=== PATIENT | male | born 1955 | race Caucasian/White ===

== ENCOUNTER → 2017-01-07 | Outpatient (CLI) | payer BC ==
[~2017-01-07] MED LIST: ALLO300T2 PO; AMLO5TAB2 PO; HYDR-4246 PO; IOHEXOL 300 MG/ML 50ml INJECTION ONE; IOHEXOL 300 MG/ML 75ml INJECTION ONE; LEVO200T10 PO; NORMAL SALINE 100 ML ONE; SALINE FLUSH 10ml SYRINGE ONE
--- NOTE | 2017-01-07 11:10 | DI ---
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 Coronal and sagittal two-dimensional reformats. Automated Exposure Control and Iterative Reconstruction dose reducing techniques were utilized. Contrast: Omnipaque 300 118 mL Findings: Neck: Thyroid gland is unremarkable. Scattered bilateral apical lymph nodes are stable in size and appearance. No new or enhancing cervical adenopathy. The salivary glands are symmetric and unchanged. No mucosal based mass lesions appreciated. Paranasal sinus disease. Chest: The lungs are stable in appearance. No consolidation, pleural effusion or pneumothorax. No new pulmonary nodules or masses. The central airways are patent stable scattered axillary lymph nodes. Interval resolution of the prior pocket of fluid in the left axilla. No new or enlarging axillary or mediastinal adenopathy. Heart size is normal. Great vessels are within normal limits. No pericardial effusion. Abdomen/pelvis: The liver is normal. The gallbladder is unremarkable. Stable cyst in the spleen. No splenomegaly. The pancreas is normal. The adrenal glands and kidneys are stable. Multiple enlarged mesenteric and retroperitoneal nodes are again seen. Physician Non Invasive Cardiologist left mesenteric node on image #36 is grossly stable at 1.9 cm short axis dimension. Adjacent lymph node on image #40 may be slightly smaller now at 2.2 cm short axis compared to 2.4 cm. Left periaortic node on image #48 measures 1.9 cm in short axis, stable from the comparison. No new or worsening adenopathy appreciated. Stable left inguinal adenopathy. Unchanged right external iliac node. The bladder is normal. No free fluid or bowel obstruction. Prior left colon resection. The appendix is normal. Bone windows show no acute findings. Impression: Stable exam with no significant change in the neck, abdominal and pelvic adenopathy. .
== END ==
LOC: IMA 08:58
PROVIDERS: ATTEND Internal Medicine Hematology & Oncology
DX: C83.02 Small cell B-cell lymphoma, intrathoracic lymph nodes (principal); C83.03 Small cell B-cell lymphoma, intra-abdominal lymph nodes
CPT/HCPCS: 70491; 71260; 74177; J7050; Q9967

== ENCOUNTER → 2017-01-13 | Outpatient (CLI) | payer BC ==
[~2017-01-13] MED LIST changes: -IOHEXOL 300 MG/ML 50ml INJECTION ONE; -IOHEXOL 300 MG/ML 75ml INJECTION ONE; -NORMAL SALINE 100 ML ONE; -SALINE FLUSH 10ml SYRINGE ONE
[2017-01-13 12:51] LABS: BASOPHILS % (AUTO) 0.6 % (0-2); EOSINOPHILS # (AUTO) 0.4 T/MM3 (0-0.5); EOSINOPHILS % (AUTO) 5.8 % (0-4); HCT - HEMATOCRIT 42.9 % (41-53); HGB - HEMOGLOBIN 14.2 GM/DL (13.5-17.5); IMMATURE GRANULOCYTE # (AUTO) 0.01 T/MM3 (0.00-0.03); IMMATURE GRANULOCYTE % (AUTO) 0.2 % (0.0-0.5); LYMPHOCYTES # (AUTO) 2.6 T/MM3 (1-4.8); LYMPHOCYTES % (AUTO) 38.9 % (23-45); MEAN CORPUSCULAR HGB 30.9 UUG (26-34); MEAN CORPUSCULAR HGB CONC(MCHC 33.1 GM/DL (31-37); MEAN CORPUSCULAR VOLUME 93.3 UM3 (80-100); MONOCYTES # (AUTO) 0.4 T/MM3 (0-0.8); MONOCYTES % (AUTO) 5.5 % (0-9.0); NEUTROPHILS #(AUTO)-ABSOLUTE 3.2 T/MM3 (1.8-7.7); WBC - WHITE BLOOD COUNT 6.6 T/MM3 (4.5-11.0)
[2017-01-13 12:58] LABS: ALBUMIN 4.1 G/DL (3.5-5.0); ALBUMIN/GLOBULIN RATIO 1.5 RATIO (1.1-2.2); ALKALINE PHOSPHATASE 73 U/L (38-126); ALT (SGPT) 28 U/L (21-72); ANION GAP 12 MEQ/L (5-15); AST (SGOT) 23 U/L (17-59); BUN/CREATININE RATIO 10 RATIO (6-26); CALCIUM 9.3 MG/DL (8.4-10.2); CHLORIDE 101 MEQ/L (98-107); CO2 - CARBON DIOXIDE 30 MEQ/L (22-30); CREATININE 1.1 MG/DL (0.8-1.5); GLOMERULAR FILTRATION RATE 69; GLUCOSE 91 MG/DL (75-110); LDH 292 U/L (313-618); POTASSIUM 3.9 MEQ/L (3.6-5); SODIUM 143 MEQ/L (134-144); TOTAL PROTEIN 6.8 G/DL (6.3-8.2)
== END ==
LOC: LAB 12:18
PROVIDERS: ATTEND Internal Medicine Hematology & Oncology
DX: C83.02 Small cell B-cell lymphoma, intrathoracic lymph nodes (principal); C83.03 Small cell B-cell lymphoma, intra-abdominal lymph nodes
CPT/HCPCS: 36415; 80053; 83615; 85025